=== PATIENT | male | born 1985 | race Caucasian/White ===

== ENCOUNTER 2021-06-22 03:16 | Emergency (ER) | payer OTHER ==
--- NOTE | 2021-06-22 03:54 | ED Physician Documentation ---
PD HPI NVD - Stated complaint Stated Complaint: VOMITING BLOOD - Chief complaint Chief Complaint: Abd Pain - History obtained from History obtained from: Patient - History of Present Illness Timing - onset: How many hours ago (12), Yesterday Timing - details: Abrupt onset Pain level now: 8 Associated symptoms: Abdominal pain, Hematemesis Contributing factors: No: Alcohol use Improved by: Other (no ameliorating factors) Worsened by: Palpation Similar symptoms before: Diagnosis (gastritis) Recently seen: Not recently seen - Additonal information Additional information: BIBA for 12 hours of epigastric pain, nausea and vomiting. He says he has had similar symptoms a couple of times (per patient) in the past and has had testing that included upper endoscopy. Patient says they never can find anything although he also says gastritis was noted on the endoscopy. He had the endoscopy performed in [place]. He says he moved to [facility] one week ago. He says he does not take any prescription medications although he told medics he took zofran without relief. When I point out that this is a prescription medication, he says he takes no other prescription medications on a regular basis. To clarify, I ask him if he has any other prescription medications even if they are on an as-needed basis and he says he does not. He strongly denies any alcohol use, recent/heavy/regular. Patient says he has noticed small amount of bright red blood in vomitus without clots. He is COVID vaccinated with booster. He says he typically has improvement with compazine and benadryl when he gets these symptoms Review of Systems Constitutional: reports: Reviewed and negative Cardiac: reports: Reviewed and negative Respiratory: reports: Reviewed and negative GI: reports: Abdominal Pain, Nausea, Vomiting, Hematemesis. denies: Constipation, Diarrhea PD PAST MEDICAL HISTORY - Past Medical History Past Medical History: Yes Cardiovascular: None Respiratory: None Neuro: None Endocrine/Autoimmune: None GI: None : None HEENT: None Psych: None Musculoskeletal: None Derm: None - Past Surgical History Past Surgical History: No - Present Medications Home Medications: Ambulatory Orders Medication Instructions Recorded Confirmed HYDROcod/ACETAM 5/325 [[place] 5/325] 1 - 2 tablet PO Q6H PRN #14 tablet 06/22/21 Omeprazole Magnesium 20 mg PO DAILY #14 cap 06/22/21 Prochlorperazine [Compazine] 10 mg PO Q6H PRN #10 tablet 06/22/21 - Allergies Allergies/Adverse Reactions: Allergies Allergy/AdvReac Type Severity Reaction Status Date / Time No Known Drug Allergies Allergy Verified 06/22/21 03:37 - Social History Does the pt smoke?: No Smoking Status: Never smoker Does the pt drink ETOH?: No Does the pt have substance abuse?: No - Immunizations Immunizations are current?: No - POLST Patient has POLST: No PD ED PE NORMAL - Vitals Vital signs reviewed: Yes - General General: Alert and oriented X 3, Well developed/nourished, Other (has 2-3 episodes emesis during H+P) - Neck Neck: Supple, no meningeal sign - Cardiac Cardiac: RRR, No murmur - Respiratory Respiratory: No respiratory distress, Clear bilaterally - Abdomen Abdomen: Soft, Non tender, Non distended - Derm Derm: Normal color, Warm and dry Results - Vitals Vitals: Vital Signs - 24 hr 06/22/21 06/22/21 06/22/21 06:01 06:16 07:55 Temperature 36.6 C Heart Rate 58 L 83 65 Respiratory 18 16 14 Rate Blood Pressure 122/66 122/66 135/72 H O2 Saturation 98 100 99 Oxygen O2 Source Room air - Labs Labs: Laboratory Tests 06/22/21 06/22/21 05:14 05:14 WBC 8.0 RBC 3.91 L Hgb 12.6 L Hct 34.9 L MCV 89.3 MCH 32.2 H MCHC 36.1 H RDW 12.0 Plt Count 218 MPV 10.1 Neut # (Auto) 7.1 H Lymph # (Auto) 0.4 L [place] # (Auto) 0.5 Eos # (Auto) 0.0 Baso # (Auto) 0.0 Absolute Nucleated RBC 0.00 Nucleated RBC % 0.0 Sodium 137 Potassium 3.4 L Chloride 104 Carbon Dioxide 24 Anion Gap 9.0 BUN 16 Creatinine 0.9 Estimated GFR (MDRD) 97 Glucose 156 H Calcium 8.6 Total Bilirubin 0.9 AST 17 ALT 18 Alkaline Phosphatase 48 Total Protein 6.5 L Albumin 3.8 Globulin 2.7 Albumin/Globulin Ratio 1.4 Lipase 25 PD MEDICAL DECISION MAKING - ED course Complexity details: reviewed results, re-evaluated patient, considered differential, d/w patient ED course: no concerning findings on blood tests (potassium, h/h are minimally low). He is given IV fluids , compazine, and benadryl as well as morphine for the pain. On reevaluation, he is asleep, awakens to voice. He reports significant improvement and is comfortable with d/c home. As he was standing up off of stretcher, he again had nausea, vomiting and so he is given a second liter NS IV and 8mg IV zofran. On reevaluation after these interventions, he is again feeling comfortable and he does not have recurrence of the vomiting. Prescriptions for vicodin, omeprazole, and compazine are transmitted to [facility] Departure - Departure Disposition: Home, Self Care Clinical Impression: Abdominal pain Qualifiers: Abdominal location: epigastric Qualified Code(s): R10.13 - Epigastric pain Vomiting Qualifiers: Vomiting type: unspecified Nausea presence: with nausea Qualified Code(s): R11.2 - Nausea with vomiting, unspecified Condition: Good Instructions: ED PUD Vs Gastritis, ED Nausea Vomiting, ED Epigastric Pain [facility] Follow-Up: Octavio Sargent MD [Credentialed Staff Provider] - Prescriptions: Prochlorperazine [Compazine] 10 mg PO Q6H PRN #10 tablet PRN Reason: Nausea / Vomiting HYDROcod/ACETAM 5/325 [[place] 5/325] 1 - 2 tablet PO Q6H PRN #14 tablet PRN Reason: Pain Omeprazole Magnesium 20 mg PO DAILY #14 cap Comments: The cause of your symptoms is not apparent at this time. The results of tonight's tests are neither concerning nor diagnostic. As we discussed, other tests might be needed if symptoms reoccur or persist, but at this time there are no other emergency or inpatient tests indicated. You should try to establish with a local primary care provider so you can be reevaluated for your symptoms. Prescriptions for hydrocodone/acetaminophen (pain medication), compazine (antinauseant), and omperazole (acid-blocking medication) have all been electronically submitted to [facility] pharmacy in [place]. I am prescribing a short course of narcotic pain medication for you. These are potentially dangerous and addictive medications that should be used carefully. These medications may constipate you. Take an [id number] stool softener (docusate) twice daily with plenty of water while taking these medications. If you go 24 hours without a bowel movement, take [id number] miralax, per package instructions. Do not drink or drive while taking these medications. If you received narcotic or sedating medications while in the emergency department, do not drive for 24 hours. Store this medication in a safe, secure place and out of reach of children. It is a violation of federal law to give or sell this medication to another person or to use in a manner other than prescribed. The ED will not refill narcotic prescriptions, including prescriptions lost or stolen. To dispose of unwanted medications: 1. [facility] at [address] in [place] has a medication drop box. They accept prescription medications (in pill form) Saturday through Saturday 9:00 a.m. to 5:00 p.m. 2. [facility] accepts prescription medications (in pill form only) for disposal year round. Call for more information. 3. Contact the [facility] for the next [facility] sponsored prescription drug collection event. , [phone], or [phone]; Discharge Date/Time: 06/22/21 08:02
[2021-06-22] MEDS: SODIUM CHLORIDE 0.9% 1,000 ML IV STA ×2 (04:14→06:27)
[2021-06-22] MEDS: diphenhydrAMINE INJ 50 MG/ML VIAL IVP STA (04:16)
[2021-06-22] MEDS: PROCHLORPERAZINE 10 MG/2 ML VIAL IVP STA (04:20)
[2021-06-22] MEDS: MORPHINE 2 MG/ML CARPUJECT IVP STA (04:22)
[2021-06-22 05:23] LABS: BASOPHILS % (AUTO) 0.1 %; HCT - HEMATOCRIT 34.9 % (42.0-52.0); HGB - HEMOGLOBIN 12.6 g/dL (14.0-18.0); LYMPHOCYTES # (AUTO) 0.4 10^3/uL (1.5-3.5); LYMPHOCYTES % (AUTO) 4.9 %; MEAN CORPUSCULAR HEMOGLOBIN 32.2 pg (27.0-31.0); MEAN CORPUSCULAR HGB CONC 36.1 g/dL (32.0-36.0); MEAN CORPUSCULAR VOLUME 89.3 fL (80.0-94.0); MEAN PLATELET VOLUME 10.1 fL (7.4-11.4); MONOCYTES # (AUTO) 0.5 10^3/uL (0.0-1.0); NEUTROPHILS # (AUTO) 7.1 10^3/uL (1.5-6.6); NEUTROPHILS % (AUTO) 88.5 %; PLT - PLATELET COUNT 218 10^3/uL (130-450); RED BLOOD COUNT 3.91 10^6/uL (4.70-6.10)
[2021-06-22 05:32] LABS: ALBUMIN 3.8 g/dL (3.2-5.5); ALBUMIN/GLOBULIN RATIO 1.4 (1.0-2.2); BILIRUBIN,TOTAL 0.9 mg/dL (0.2-1.0); CALCIUM 8.6 mg/dL (8.5-10.3); CREATININE 0.9 mg/dL (0.6-1.2); POTASSIUM 3.4 mmol/L (3.5-5.0); TOTAL PROTEIN 6.5 g/dL (6.7-8.2)
[2021-06-22] MEDS: ONDANSETRON 4 MG/2 ML VIAL IVP STA (06:27)
[2021-06-22 07:56] VITALS: BP 135/72
== END 2021-06-22 08:02 | disposition home or self-care (01) ==
LOC: ED 03:16
DX: R10.13 Epigastric pain (principal); R11.2 Nausea with vomiting, unspecified
CPT/HCPCS: 36415; 80053; 83690; 85025; 96374; 96375; 99283; 99285; J1200